=== PATIENT | female | born 1975 | race Caucasian/White ===

== ENCOUNTER 2021-05-26 16:54 | Emergency (ER) | payer OTHER, SELFPAY ==
--- NOTE | ~2021-05-26 | XR_ITS ---
EXAMINATION: XR foot LT min 3V DATE: 05/26/2021 17:22 INDICATION: Pain and swelling at the dorsum of the left foot TECHNIQUE: Dorsoplantar, two oblique and lateral views of the left foot were obtained. COMPARISON: None. FINDINGS: Alignment is normal. No fracture. Joint spaces are normal. Soft tissues are unremarkable. IMPRESSION: 1. Negative left foot radiographs. Reviewed, dictated and finalized at location A.
--- NOTE | 2021-05-26 16:59 | ED.LOWEXIN ---
HPI - Extremity Injury (Lower) General Chief Complaint: Extremity Injury, Lower Stated Complaint: left foot pain Time Seen by Provider: 05/26/21 16:59 Source: patient and RN notes reviewed History of Present Illness HPI Narrative: Patient is a 46-year-old female who presents the urgent care with complaints of left foot pain and swelling. Patient states is been occurring for the last 3 weeks and has worsened in the last couple days. Patient states that she is having increased pain with ambulation. States that she has been keeping the foot elevated with ice as well as taking Advil for the pain. Patient states she does have history of tendinitis. However patient believes that she may have a stress fracture . Patient denies of any recent strenuous activity, running, increase walking activities. Denies of any recent injury or fall. No other acute complaints. No acute distress noted. Patient aware of the plan of care. Some parts of this dictation were generated by voice recognition software and may contain typographical and/or grammatical inaccuracies. Related Data Home Medications Medication Instructions Recorded Confirmed bupropion HCl mg PO 05/26/21 dulaglutide [Trulicity] mg SUBCUT 05/26/21 duloxetine mg PO 05/26/21 indomethacin mg PO 05/26/21 metformin mg 05/26/21 omeprazole 05/26/21 pravastatin 05/26/21 tofacitinib [Xeljanz XR] mg PO 05/26/21 Allergies Allergy/AdvReac Type Severity Reaction Status Date / Time erythromycin base AdvReac Nausea Verified 05/26/21 17:11 Review of Systems Review of Systems: Narrative: CONSTITUTIONAL: Denies fever, chills, or sweats. EYES: Denies visual changes, redness, or discharge. ENT: Denies rhinorrhea, congestion, sore throat, or otalgia. CARDIOVASCULAR: Denies chest pain, palpitations, or edema. RESPIRATORY: Denies cough or dyspnea. GASTROINTESTINAL: Denies abdominal pain, nausea, vomiting, or diarrhea. GENITOURINARY: Denies dysuria or hematuria. SKIN: Denies rash or itching. MUSCULOSKELETAL: Reports of left pain and swelling NEUROLOGIC: Denies headache, numbness, or weakness. All other systems reviewed are negative, except as documented in HPI. [facility] Comments At the time of my signature, I reviewed and agree with the nursing past medical, surgical, social, and family history. There is no relevant family history pertinent to the patient complaint. Exam Narrative: Exam Narrative: GENERAL: This is a well-nourished, well-developed patient, in no apparent distress. HEAD: normocephalic, atraumatic. EYES: PERRL. Sclera clear/white. Vision is grossly intact. EARS: External ears normal NOSE: External nose normal with no obvious nasal discharge, nares without redness, no rhinorrhea. THROAT: Mucous membranes moist NECK: Neck supple CARDIOVASCULAR: Regular rate and rhythm without murmurs, gallops, or rubs. RESPIRATORY: Clear to auscultation. Breath sounds equal bilaterally. No wheezes, rales, or rhonchi. SKIN: warm, intact with no suspicious lesions or rash, good texture and turgor. NEURO: awake, alert, and oriented to person, place and time. There were no obvious focal neurologic abnormalities. EXTREMITIES: Mild to moderate edema and point tenderness to the left dorsal foot directly proximal to the middle digit with mild ecchymosis. No obvious deformity to left lower extremity. Positive strong left pedal pulse with capillary refill less than 2 seconds. Course Vital Signs Vital signs: Vital Signs Temperature 98.4 F 05/26/21 17:02 Pulse Rate 81 05/26/21 17:02 Respiratory Rate 14 05/26/21 17:02 Blood Pressure 119/60 05/26/21 17:02 Pulse Oximetry 100 05/26/21 17:02 Temperature 98.4 F 05/26/21 17:02 Pulse Rate 81 05/26/21 17:02 Respiratory Rate 14 05/26/21 17:02 Blood Pressure 119/60 05/26/21 17:02 Pulse Oximetry 100 05/26/21 17:02 Reviewed MDM - Extremity Injury (Lower) MDM Narrative Medical decision making narrative: Reviewed x-
[2021-05-26 17:02] VITALS: BP 119/60; PULSE 81; RESP 14; TEMP 36.9; O2SAT 100
--- NOTE | 2021-05-26 17:29 | PC.NURSE ---
PT DECLINED ICE FOR COMFORT AND WHEELCHAIR TO RADIOLOGY
== END 2021-05-26 18:15 | disposition home or self-care (01) ==
PROVIDERS: Emergency Provider Nurse Practitioner Family
DX: M79.672 Pain in left foot (principal); E78.00 Pure hypercholesterolemia, unspecified; K21.9 Gastro-esophageal reflux disease without esophagitis; E11.9 Type 2 diabetes mellitus without complications; M45.9 Ankylosing spondylitis of unspecified sites in spine
CPT/HCPCS: 73630; 99213; G0463